=== PATIENT | female | born 1980 ===

== ENCOUNTER 2023-02-19 16:13 | Emergency (ER) | payer OTHER, SELFPAY ==
--- NOTE | 2023-02-19 16:26 | ED.EXTPRO ---
HPI - Extremity Problem <COLETTE Estes - Last Filed: 02/19/23 17:46> General Chief complaint: Skin/Abscess/Foreign Body Stated complaint: lt index finger lac Time Seen by Provider: 02/19/23 16:26 History of Present Illness HPI Narrative: This is a 42-year-old female presents to the emergency department with a laceration to her left index finger. She states that this occurred when she was using the knife that she keeps in her car. She states that she accidentally cut the inside of her left index finger, she is right-hand dominant, had some bleeding and applied a dressing and came in for evaluation. She does not remember last tetanus. Denies numbness, tingling, range of motion deficit or any sensation changes. She is not anticoagulated. Related Data Allergies Allergy/AdvReac Type Severity Reaction Status Date / Time Sulfa (Sulfonamide Allergy Verified 02/19/23 16:37 Antibiotics) Review of Systems <COLETTE Estes - Last Filed: 02/19/23 17:46> Review of Systems ROS Unobtainable: All systems reviewed & are unremarkable except as noted in HPI and below Patient History <COLETTE Estes - Last Filed: 02/19/23 17:46> Social History Smoking Status: Current every day smoker Exam <COLETTE Estes - Last Filed: 02/19/23 17:46> Narrative Exam Narrative: Left index finger with a 2 cm linear laceration at the PIP joint on the medial aspect, no foreign body, no suspected tendon, vessel or bony abnormality, range of motion intact, brisk cap refill, laceration was repaired with 5 sutures and patient tolerated well, hemostatic at completion. Initial Vital Signs Initial Vital Signs: Vital Signs Temperature 98.0 F 02/19/23 16:32 Pulse Rate 103 H 02/19/23 16:32 Respiratory Rate 16 02/19/23 16:32 Blood Pressure 116/76 02/19/23 16:32 Pulse Oximetry 99 02/19/23 16:32 Oxygen Delivery Method Room Air 02/19/23 16:32 <Zain Way DO - Last Filed: 02/20/23 08:28> Initial Vital Signs Initial Vital Signs: Vital Signs Temperature 98.0 F 02/19/23 16:32 Pulse Rate 103 H 02/19/23 16:32 Respiratory Rate 16 02/19/23 16:32 Blood Pressure 116/76 02/19/23 16:32 Pulse Oximetry 99 02/19/23 16:32 Oxygen Delivery Method Room Air 02/19/23 16:32 Procedures <COLETTE Estes - Last Filed: 02/19/23 17:46> Laceration Repair Laceration 1: Site: hand Side (If applicable): left Size (cm): 2 Description: linear Depth: simple, single layer Local Anesthetic: lidocaine 2% Amount of anesthesia used (mL): 2 Pre-repair: wound explored, irrigated extensively and deep structures intact Skin layer closed with: nylon Skin layer suture size: 5-0 Number of sutures: 5 Technique: simple, interrupted Course <COLETTE Estes - Last Filed: 02/19/23 17:46> Orders Ordered: Discontinued Medications Diphtheria/Tetanus/Acell Pertussis (Tet,Diph,Pertuss(Acell),Vac/Pf 0.5 Ml Syringe) 0.5 ml IM .ONCE ONE Stop: 02/19/23 17:11 Last Admin: 02/19/23 17:16 Dose: 0.5 ml Documented By: ADAM Ibuprofen (Ibuprofen 400 Mg Tablet) 800 mg PO NOW ONE Stop: 02/19/23 17:11 Last Admin: 02/19/23 17:15 Dose: 800 mg Documented By: ADAM Lidocaine HCl (Lidocaine 2% Inj Sdv 5ml) 5 ml INJ INTRA-OP ONE Stop: 02/19/23 16:43 Last Admin: 02/19/23 17:15 Dose: 5 ml Documented By: ADAM Vital Signs Vital signs: Vital Signs - 8 hr 02/19/23 16:32 Temperature 98.0 F Pulse Rate 103 H Respiratory Rate 16 Blood Pressure 116/76 Pulse Oximetry 99 Oxygen Delivery Method Room Air <Zain Way DO - Last Filed: 02/20/23 08:28> Orders Ordered: Discontinued Medications Diphtheria/Tetanus/Acell Pertussis (Tet,Diph,Pertuss(Acell),Vac/Pf 0.5 Ml Syringe) 0.5 ml IM .ONCE ONE Stop: 02/19/23 17:11 Last Admin: 02/19/23 17:16 Dose: 0.5 ml Documented By: ADAM Ibuprofen (Ibuprofen 400 Mg Tablet) 800 mg PO NOW ONE Stop: 02/19/23 17:11 Last Admin: 02/19/23 17:15 Dose: 800 mg Documented By: ADAM Lidocaine HCl (Lidocaine 2% Inj Sdv 5ml) 5 ml INJ INTRA-OP ONE Stop: 02/19/23 16:43 Last Admin: 02/19/23 17:15 Dose: 5 ml Documented By: ADAM Vital Signs Vital signs: Vital Signs - 8 hr 02/19/23 16:32 Temperature 98.0 F Pulse Rate 103 H Respiratory Rate 16 Blood Pressure 116/76 Pulse Oximetry 99 Oxygen Delivery Method Room Air MDM - Extremity (Nontraumatic) <COLETTE Estes - Last Filed: 02/19/23 17:46> MDM Narrative Medical decision making narrative: Chief Complaint: finger laceration Multiple etiologies for patient's complaint considered including, but not limited to: Skin laceration, vascular injury, tendon laceration I have independently reviewed the patient's vital signs and nursing notes as well as prior records if available. Plan: Patient's tetanus vaccination was updated. Suture repair completed with 5 Ethilon sutures. Patient tolerated well, uncomplicated. Encouraged to use ibuprofen Tylenol as needed for pain, antibiotic ointment, return to the ED for redness or streaking finger, worsening pain or signs of infection. Social considerations that may affect disposition: none Questions are addressed and there is agreement with the plan and for follow-up. I consulted with the ED attending physician Dr. Way as needed for higher level of care considerations and they were available for discussion and recommendations regarding plan of care and diagnostic testing. Patient is appropriate for outpatient management. Discharge Plan Departure Patient Disposition: Home Clinical Impression: Finger laceration Qualifiers: Encounter type: initial encounter Finger: index finger Damage to nail status: without damage Foreign body presence: without foreign body Laterality: left Qualified Code(s): S61.211A - Laceration without foreign body of left index finger without damage to nail, initial encounter Instructions: DI for Laceration Repair -- Finger Activity Restrictions/Additional Instructions: *You have been diagnosed with laceration to your left index finger proximally 2 cm. Please remove her sutures 7-10 days, keep it covered with a Band-Aid to prevent infection, venous redness or streaking up your hand please follow-up with primary care for an oral antibiotic or return emergency department. Okay to use antibiotic ointment. Please keep it covered at all times and okay to wash and shower like usual. *What to do: *Please continue to take your regular medications as directed. [ ] New medication prescriptions sent to your pharmacy: [ ] [ ] New medication written as a paper prescription [x ] No new medications given *Please call and schedule follow up with your primary care provider in 2-3 days, at least for an update. Let them know you were seen in the Emergency Department for the above problem. We will electronically transmit a record of today's note if your PCP or specialist is in our system. *If you do not have a primary care provider please contact [phone] to establish care with one of the [facility] primary care providers. *Return to the Emergency Department for worsening symptoms, inability to keep liquids down, fever greater than 101F, chills, or other concerning symptom. Stand Alone Forms: Patient Portal/API <Zain Way DO - Last Filed: 02/20/23 08:28> [facility] ED Attending Yosefature Attestation: I was immediately available in the department for consultation. Documentation has been reviewed. I agree with assessment and plan.
[2023-02-19 16:32] VITALS: BP 116/76; PULSE 103; RESP 16; TEMP 36.7; O2SAT 99; BMI 30.7
[2023-02-19] MEDS: IBUPROFEN 400 MG TABLET 800 MG PO (17:15)
[2023-02-19] MEDS: LIDOCAINE 2% INJ SDV 5ML 5 ML INJ (17:15)
[2023-02-19] MEDS: TET,DIPH,PERTUSS(ACELL),VAC/PF 0.5 ML SYRINGE IM (17:16)
[2023-02-19 17:33] VITALS: BP 121/78; PULSE 96; RESP 16; O2SAT 99
== END 2023-02-19 17:37 | disposition home or self-care (01) ==
PROVIDERS: Emergency Provider Nurse Practitioner Critical Care Medicine
DX: S61.211A Laceration without foreign body of left index finger without damage to nail, initial encounter (principal); W26.0XXA Contact with knife, initial encounter; Z23 Encounter for immunization
CPT/HCPCS: 12001; 90471; 99283; 99284; 90715